=== PATIENT | female | born 1975 | race Caucasian/White ===

== ENCOUNTER 2017-03-31 14:35 | Emergency (ER) | payer OTHER ==
[2017-03-31 16:02] VITALS: BP 147/92
--- NOTE | 2017-03-31 16:46 | ED Physician Documentation ---
PD HPI URI - Stated complaint Stated Complaint: SOA - Chief complaint Chief Complaint: Cardiac - History obtained from History obtained from: Patient - History of Present Illness Timing - onset: How many days ago (few) Timing duration: Days (few) Timing details: Gradual onset, Still present Associated symptoms: Chills. No: Fever Improves by: No: Rest, Medication Worsened by: Activity Review of Systems Constitutional: reports: Myalgias. denies: Fever, Chills Ears: denies: Loss of hearing, Drainage/discharge Cardiac: reports: Chest pain / pressure. denies: Palpitations Respiratory: denies: Dyspnea Skin: denies: Rash, Lesions Neurologic: reports: Syncope. denies: Headache PD PAST MEDICAL HISTORY - Past Medical History Cardiovascular: Hypertension Respiratory: Pneumonia, Other Neuro: Headache/migraine Endocrine/Autoimmune: None GI: GERD OIL CHANGER: None : None HEENT: None Psych: ADD/ADHD Musculoskeletal: None Derm: None - Past Surgical History Past Surgical History: Yes General: Cholecystectomy /OIL CHANGER: Tubal ligation HEENT: Tonsil/Adenoidectomy - Present Medications Home Medications: Ambulatory Orders Medication Instructions Recorded Confirmed buPROPion [Wellbutrin Sr] 150 mg PO DAILY 11/28/15 01/02/16 Albuterol Sulfate [Proair Hfa 2 puffs IH QID #1 hfa.aer.ad 01/02/16 Inhaler] Gabapentin 100 mg ORAL QPM 01/02/16 01/02/16 Hydrocodone/Acetaminophen [[place] 1 each PO Q6H PRN #20 tablet 01/02/16 5-325 Tablet] Ibuprofen [Motrin] 600 mg PO TID #30 tab 01/02/16 HYDROcod/ACETAM 5/325 [[place] 5/325] 1 - 2 ea PO Q6H PRN #15 tablet 03/01/16 Ibuprofen [Motrin] 800 mg PO Q8H PRN #30 tablet 03/01/16 Albuterol Sulf [Ventolin Hfa 1 - 2 puffs INH Q4HR PRN #1 inhaler 03/31/17 Inhaler] Cephalexin [Keflex] 500 mg PO TID #21 capsule 03/31/17 HYDROcod/ACETAM 5/325 [[place] 5/325] 1 tab PO Q6H PRN #15 tablet 03/31/17 Naproxen [Naprosyn] 500 mg PO BID PRN #20 tablet 03/31/17 - Allergies Allergies/Adverse Reactions: Allergies Allergy/AdvReac Type Severity Reaction Status Date / Time tetracycline [Tetracycline] Allergy Nausea Verified 03/31/17 14:53 EVERT Inhibitors AdvReac Nausea Verified 03/31/17 14:53 - Social History Does the pt smoke?: No Smoking Status: Never smoker Does the pt drink ETOH?: Yes Does the pt have substance abuse?: No - Immunizations Immunizations are current?: Yes - POLST Patient has POLST: No PD ED PE NORMAL - Vitals Vital signs reviewed: Yes - General General: Alert and oriented X 3, Well developed/nourished, Other (appears uncomfortable) - HEENT HEENT: PERRL, Dentition benign - Neck Neck: Supple, no meningeal sign - Cardiac Cardiac: RRR, No murmur - Respiratory Respiratory: No: Clear bilaterally (scattered breath sounds, with wheezes noted. No coarse sounds. ) - Abdomen Abdomen: Soft, Non tender - Back Back: No CVA TTP - Derm Derm: Normal color, Warm and dry, No rash - Neuro Neuro: Alert and oriented X 3, No motor deficit, Normal speech Results - Vitals Vitals: Oxygen O2 Source Room air - Labs Labs: Laboratory Tests 03/31/17 03/31/17 03/31/17 17:12 17:12 17:12 WBC 5.2 RBC 4.69 Hgb 12.7 Hct 38.8 MCV 82.8 MCH 27.2 MCHC 32.8 RDW 16.7 H Plt Count 185 MPV 9.7 Neut # 3.8 Lymph # 0.5 L Stanley # 0.7 Eos # 0.1 Baso # 0.0 Absolute Nucleated RBC 0.00 Nucleated RBC % 0.1 Sodium 137 Potassium 4.2 Chloride 103 Carbon Dioxide 27 Anion Gap 7.0 BUN 10 Creatinine 0.5 Estimated GFR (MDRD) 136 Glucose 115 H Calcium 8.9 Total Bilirubin 1.1 H AST 66 H ALT 66 H Alkaline Phosphatase 61 Troponin I < 0.04 B-Natriuretic Peptide Total Protein 7.6 Albumin 3.9 Globulin 3.7 Albumin/Globulin Ratio 1.1 Lipase 27 03/31/17 17:12 WBC RBC Hgb Hct MCV MCH MCHC RDW Plt Count MPV Neut # Lymph # Stanley # Eos # Baso # Absolute Nucleated RBC Nucleated RBC % Sodium Potassium Chloride Carbon Dioxide Anion Gap BUN Creatinine Estimated GFR (MDRD) Glucose Calcium Total Bilirubin AST ALT Alkaline Phosphatase Troponin I B-Natriuretic Peptide 50 Total Protein Albumin Globulin Albumin/Globulin Ratio Lipase - Rads (name of study) chest xray Radiology: Prelim report reviewed, EMP read contemporaneously PD MEDICAL DECISION MAKING - ED course Complexity details: reviewed results, considered differential, d/w patient Departure - Departure Disposition: 01 Home, Self Care Clinical Impression: Chest pain Qualifiers: Chest pain type: other chest pain Qualified Code(s): R07.89 - Other chest pain Upper respiratory infection Qualifiers: URI type: unspecified URI Qualified Code(s): J06.9 - Acute upper respiratory infection, unspecified Condition: Stable Record reviewed to determine appropriate education?: Yes Instructions: ED Upper Resp Infec Abx Tx, ED Strain Chest Wall Prescriptions: Albuterol Sulf [Ventolin Hfa Inhaler] 1 - 2 puffs INH Q4HR PRN #1 inhaler PRN Reason: Shortness Of Air/Wheezing Cephalexin [Keflex] 500 mg PO TID #21 capsule HYDROcod/ACETAM 5/325 [[place] 5/325] 1 tab PO Q6H PRN #15 tablet PRN Reason: Pain Naproxen [Naprosyn] 500 mg PO BID PRN #20 tablet PRN Reason: Pain Comments: Drink lots of fluids. Naproxen twice daily for the next 7-10 days. Add hydrocodone for pain or cough. Use your [place] albuterol inhaler 2 puffs 3-4 times a day for 7-10 days. Cephalexin for possible bacterial infection. Recheck if not improving over the next several days. Discharge Date/Time: 03/31/17 18:58
[2017-03-31] MEDS ORDERED: ALBUTEROL NEB 2.5 MG/3 ML INH STA (17:00)
[2017-03-31] MEDS ORDERED: BENZONATATE 100 MG CAPSULE PO STA (17:00)
[2017-03-31] MEDS ORDERED: MAG HYDROX/AL HYDROX/SIMETH 30 ML UDC PO STA (17:00)
[2017-03-31] MEDS ORDERED: LIDOCAINE VISCOUS 2% 15 ML UDC MM STA (17:00)
[2017-03-31] MEDS ORDERED: HYDROcod/ACETAM 5/325 MG TABLET PO STA (17:00)
[2017-03-31] MEDS ORDERED: ALBUTEROL NEB 2.5 MG/3 ML INH ONE (17:09)
[2017-03-31] MEDS ORDERED: MAGNESIUM HYDROXIDE 2,400 MG/30 ML UDC ONE (17:11)
[2017-03-31] MEDS ORDERED: HYDROcod/ACETAM 5/325 MG TABLET ONE (17:11)
[2017-03-31] MEDS ORDERED: BENZONATATE 100 MG CAPSULE PO ONE (17:11)
[2017-03-31] MEDS ORDERED: LIDOCAINE VISCOUS 2% 15 ML UDC MM ONE (17:12)
[2017-03-31 17:19] LABS: BASOPHILS % (AUTO) 0.8 %; EOSINOPHILS # (AUTO) 0.1 10^3/uL (0.0-0.7); EOSINOPHILS % (AUTO) 1.4 %; HCT - HEMATOCRIT 38.8 % (37.0-47.0); HGB - HEMOGLOBIN 12.7 g/dL (12.0-16.0); LYMPHOCYTES # (AUTO) 0.5 10^3/uL (1.5-3.5); LYMPHOCYTES % (AUTO) 10.6 %; MEAN CORPUSCULAR HEMOGLOBIN 27.2 pg (27.0-31.0); MEAN CORPUSCULAR HGB CONC 32.8 g/dL (32.0-36.0); MEAN CORPUSCULAR VOLUME 82.8 fL (81.0-99.0); MEAN PLATELET VOLUME 9.7 fL (7.9-10.8); MONOCYTES # (AUTO) 0.7 10^3/uL (0.0-1.0); MONOCYTES % (AUTO) 13.1 %; NEUTROPHILS # (AUTO) 3.8 10^3/uL (1.5-6.6); NEUTROPHILS % (AUTO) 74.1 %; NUCLEATED RED BLOOD CELLS AUTO 0.1 /100WBC; RED BLOOD COUNT 4.69 10^6/uL (4.20-5.40); RED CELL DISTRIBUTION WIDTH 16.7 % (12.0-15.0); UNCORRECTED WHITE BLOOD COUNT 5.2 x10^3/uL; WHITE BLOOD COUNT 5.2 x10^3/uL (4.8-10.8)
[2017-03-31 17:34] LABS: ALBUMIN/GLOBULIN RATIO 1.1 (1.0-2.2); BILIRUBIN,TOTAL 1.1 mg/dL (0.2-1.0); CALCIUM 8.9 mg/dL (8.5-10.3); CREATININE 0.5 mg/dL (0.4-1.0); POTASSIUM 4.2 mmol/L (3.5-5.0); TOTAL PROTEIN 7.6 g/dL (6.7-8.2)
--- NOTE | 2017-03-31 18:01 | XRAY Preliminary Report ---
Exam: XR Chest 2 View PA/LAT IMPRESSION: No acute disease. [facility] SITE ID: [id number]
--- NOTE | 2017-03-31 18:04 | XRAY Report ---
EXAM: CHEST RADIOGRAPHY EXAM DATE: 03/31/2017 05:43 PM. CLINICAL HISTORY: Cough and chest pain for few days. COMPARISON: 01/02/2016. TECHNIQUE: 2 views. FINDINGS: Lungs/Pleura: Mild interstitial prominence. No definite acute infiltrate, consolidation, effusion, or pneumothorax. Mediastinum: Mild cardiomegaly, unchanged. Upper lobe vessels not distended. Other: None. IMPRESSION: No acute disease. [facility] Referring Provider Line: [phone] SITE ID: [id number]
== END 2017-03-31 18:58 | disposition home or self-care (01) ==
LOC: ED 14:35
DX: R07.89 Other chest pain (principal); J06.9 Acute upper respiratory infection, unspecified; I10 Essential (primary) hypertension
CPT/HCPCS: 36415; 71020; 80053; 83690; 83880; 84484; 85025; 94640; 99283; A9270; J7613

== ENCOUNTER 2017-04-03 11:25 | Emergency (ER) | payer OTHER ==
--- NOTE | 2017-04-03 12:09 | ED Physician Documentation ---
PD HPI URI - Stated complaint Stated Complaint: SOA/COUGH - Chief complaint Chief Complaint: Resp - History obtained from History obtained from: Patient - History of Present Illness Timing - onset: How many days ago (several) Timing details: Gradual onset, Still present Associated symptoms: Fever, Productive cough, Hemoptysis (trace blood with coughing at times today.) Contributing factors: COPD / asthma. No: Sick contact, Travel, Immunocompromised Improves by: Rest, MDI/nebulizer Worsened by: Activity, Breathing Similar symptoms before: Diagnosis (URI, bronchitis, pneumonia in the past.) Recently seen: Emergency Dept (3 days ago and given Rx for abx Keflex, decadron , and norco (for pain/cough).) Review of Systems Constitutional: reports: Chills, Myalgias. denies: Fever Nose: reports: Congestion, Sinus pressure / pain Throat: reports: Sore throat. denies: Dental pain / toothache Cardiac: reports: Chest pain / pressure. denies: Palpitations Respiratory: reports: Dyspnea, Cough GI: denies: Vomiting, Diarrhea : denies: Dysuria, Frequency Skin: denies: Rash PD PAST MEDICAL HISTORY - Past Medical History Cardiovascular: Hypertension Respiratory: Pneumonia, Other Neuro: Headache/migraine Endocrine/Autoimmune: None GI: GERD OUTSOLE HANDLER: None : None HEENT: None Psych: ADD/ADHD Musculoskeletal: None Derm: None - Past Surgical History Past Surgical History: Yes General: Cholecystectomy /OUTSOLE HANDLER: Tubal ligation HEENT: Tonsil/Adenoidectomy - Present Medications Home Medications: Ambulatory Orders Medication Instructions Recorded Confirmed buPROPion [Wellbutrin Sr] 150 mg PO DAILY 11/28/15 04/03/17 Albuterol Sulfate [Proair Hfa 2 puffs IH QID #1 hfa.aer.ad 01/02/16 04/03/17 Inhaler] Gabapentin 100 mg ORAL QPM 01/02/16 04/03/17 HYDROcod/ACETAM 5/325 [[place] 5/325] 1 - 2 ea PO Q6H PRN #15 tablet 03/01/16 Ibuprofen [Motrin] 800 mg PO Q8H PRN #30 tablet 03/01/16 04/03/17 Albuterol Sulf [Ventolin Hfa 1 - 2 puffs INH Q4HR PRN #1 inhaler 03/31/17 Inhaler] Cephalexin [Keflex] 500 mg PO TID #21 capsule 03/31/17 04/03/17 Naproxen [Naprosyn] 500 mg PO BID PRN #20 tablet 03/31/17 04/03/17 Benzonatate [Tessalon] 100 mg PO TID PRN #20 capsule 04/03/17 HYDROcod/ACETAM 5/325 [[place] 5/325] 1 tab PO Q6H PRN #20 tablet 04/03/17 metFORMIN [Glucophage] 1 tab PO DAILY 04/03/17 04/03/17 - Allergies Allergies/Adverse Reactions: Allergies Allergy/AdvReac Type Severity Reaction Status Date / Time tetracycline [Tetracycline] Allergy Nausea Verified 03/31/17 14:53 EVERT Inhibitors AdvReac Nausea Verified 03/31/17 14:53 - Social History Does the pt smoke?: No Smoking Status: Never smoker Does the pt drink ETOH?: Yes Does the pt have substance abuse?: No - Immunizations Immunizations are current?: Yes - POLST Patient has POLST: No PD ED PE NORMAL - Vitals Vital signs reviewed: Yes - General General: Alert and oriented X 3, Well developed/nourished, Other (looks like she does not feel well. Harsh cough and seems hurting anterior chest when coughs. ) - HEENT HEENT: Pharynx benign - Neck Neck: Supple, no meningeal sign, No adenopathy - Cardiac Cardiac: RRR, No murmur - Respiratory Respiratory: Clear bilaterally - Abdomen Abdomen: Soft, Non tender - Derm Derm: Normal color, Warm and dry - Neuro Neuro: Alert and oriented X 3, No motor deficit, Normal speech Results - Vitals Vitals: Oxygen O2 Source Room air PD MEDICAL DECISION MAKING - ED course Complexity details: considered differential (has been on abx for just 2 days so hard to say if not working (or might be due to not bacterial). Having pain with coughing and mostly does not feel well. ), d/w patient Departure - Departure Disposition: 01 Home, Self Care Clinical Impression: URI (upper respiratory infection) Qualifiers: URI type: unspecified URI Qualified Code(s): J06.9 - Acute upper respiratory infection, unspecified Condition: Stable Record reviewed to determine appropriate education?: Yes Instructions: ED Upper Resp Infec No Abx Tx Follow-Up: JHONATAN SHELTON [Primary Care Provider] - Prescriptions: Benzonatate [Tessalon] 100 mg PO TID PRN #20 capsule PRN Reason: Cough HYDROcod/ACETAM 5/325 [[place] 5/325] 1 tab PO Q6H PRN #20 tablet PRN Reason: Pain Comments: At this point I would continue the antibiotics and steroid and be sure to do the inhaler 2 puffs 4 times a day at least. He can be used extra times as well. Continue the hydrocodone if needed for cough or pain. Add Tessalon for cough. See if it starts improving in the next day or 2. You likely will be ill for about a week or more however and the cough will persist for few weeks even once you are well. It should be tapering soon though. Discharge Date/Time: 04/03/17 12:55
[2017-04-03] MEDS ORDERED: BENZONATATE 100 MG CAPSULE PO STA (12:28)
[2017-04-03] MEDS ORDERED: HYDROcod/ACETAM 5/325 MG TABLET PO STA (12:28)
[2017-04-03] MEDS ORDERED: BENZONATATE 100 MG CAPSULE PO ONE (12:43)
[2017-04-03] MEDS ORDERED: HYDROcod/ACETAM 5/325 MG TABLET ONE (12:44)
[2017-04-03 13:01] VITALS: BP 128/84
== END 2017-04-03 12:55 | disposition home or self-care (01) ==
LOC: ED 11:25
DX: J06.9 Acute upper respiratory infection, unspecified (principal); I10 Essential (primary) hypertension; K21.9 Gastro-esophageal reflux disease without esophagitis
CPT/HCPCS: 99282; 99283; A9270

== ENCOUNTER 2017-04-30 20:50 | Outpatient (CLI) | payer OTHER ==
--- NOTE | 2017-05-01 10:38 | Ultrasound Report ---
PELVIC ULTRASOUND: 04/30/2017 No comparison. INDICATION: Exquisite and worsening tenderness. TECHNIQUE: Sonographic evaluation of the pelvis was performed using transabdominal and endovaginal t echnique. FINDINGS: The uterus and right ovary are surgically absent. There is a 5.3 cm simple-appearing left ovarian cyst. The left ovary otherwise demonstrates normal b lood flow. There is no free fluid in the pelvis. The bladder appears grossly unremarkable. IMPRESSION: 1. LEFT OVARIAN CYST. FOLLOWUP IS AVAILABLE INDICATED. 2. UTERUS AND RIGHT OVARY ARE SURGICALLY ABSENT. :9 JOB #: [id number] EXT JOB #:[id number]
== END 2017-04-30 20:51 | disposition home or self-care (01) ==
LOC: DI 20:50
PROVIDERS: ATTEND Nurse Practitioner Family
DX: N83.292 Other ovarian cyst, left side (principal); Z90.710 Acquired absence of both cervix and uterus; Z90.721 Acquired absence of ovaries, unilateral
CPT/HCPCS: 76830; 76856

== ENCOUNTER 2018-08-15 14:00 | Emergency (ER) | payer OTHER ==
[2018-08-15] MEDS ORDERED: oxyCODONE 5 MG TABLET PO STA (14:11)
--- NOTE | 2018-08-15 14:14 | ED Physician Documentation ---
PD HPI BACK PAIN - Stated complaint Stated Complaint: BACK PX - History obtained from History obtained from: Patient - History of Present Illness Timing - onset: Other (43-year-old woman with occasional back pain presents with 1 week of back pain that was mild until she stepped wrong and became severe across the low back. It does not radiate into the legs. She denies weakness, numbness, or tingling in the extremities except for mild chronic diabetic neuropathy. There are no fevers. No trouble with bowel or bladder movements and no saddle anesthesia. She tried NSAIDs and Flexeril without relief.) Review of Systems Constitutional: denies: Fever, Chills Respiratory: denies: Dyspnea, Cough GI: denies: Abdominal Pain, Nausea, Vomiting PD PAST MEDICAL HISTORY - Past Medical History Cardiovascular: Hypertension Respiratory: Pneumonia, Other Endocrine/Autoimmune: None GI: GERD PANTS CLOSER: None : None HEENT: None Psych: ADD/ADHD Musculoskeletal: None Derm: None - Past Surgical History Past Surgical History: Yes General: Cholecystectomy /PANTS CLOSER: Tubal ligation HEENT: Tonsil/Adenoidectomy - Present Medications Home Medications: Ambulatory Orders Medication Instructions Recorded Confirmed RX: buPROPion [Wellbutrin Sr] 150 mg PO DAILY 11/28/15 04/03/17 RX: Albuterol Sulfate [Proair Hfa 2 puffs IH QID #1 hfa.aer.ad 01/02/16 04/03/17 Inhaler] RX: Gabapentin 100 mg ORAL QPM 01/02/16 04/03/17 Ibuprofen [Motrin] 800 mg PO Q8H PRN #30 tablet 03/01/16 04/03/17 RX: HYDROcod/ACETAM 5/325 [[place] 1 - 2 ea PO Q6H PRN #15 tablet 03/01/16 04/03/17 5/325] Cephalexin [Keflex] 500 mg PO TID #21 capsule 03/31/17 04/03/17 RX: Albuterol Sulf [Ventolin Hfa 1 - 2 puffs INH Q4HR PRN #1 inhaler 03/31/17 04/03/17 Inhaler] RX: Naproxen [Naprosyn] 500 mg PO BID PRN #20 tablet 03/31/17 04/03/17 Benzonatate [Tessalon] 100 mg PO TID PRN #20 capsule 04/03/17 HYDROcod/ACETAM 5/325 [[place] 5/325] 1 tab PO Q6H PRN #20 tablet 04/03/17 RX: metFORMIN [Glucophage] 1 tab PO DAILY 04/03/17 04/03/17 Oxycodone HCl/Acetaminophen 1 - 2 each PO Q6H PRN #14 tablet 08/15/18 [Percocet 5-325 mg Tablet] - Allergies Allergies/Adverse Reactions: Allergies Allergy/AdvReac Type Severity Reaction Status Date / Time tetracycline [Tetracycline] Allergy Nausea Verified 03/31/17 14:53 EVERT Inhibitors AdvReac Nausea Verified 03/31/17 14:53 - Social History Does the pt smoke?: No Smoking Status: Never smoker Does the pt drink ETOH?: Yes Does the pt have substance abuse?: No - Immunizations Immunizations are current?: Yes - POLST Patient has POLST: No PD ED PE NORMAL - Vitals Vital signs reviewed: Yes - General General: Alert and oriented X 3, No acute distress, Other (Win[place] with motion and with walking but comfortable at rest) - Abdomen Abdomen: Soft, Non tender - Back Back: Other (Diffuse muscular tenderness of the low back especially left paralumbar musculature) - Extremities Extremities: Other (The patient has equal and normal Achilles and patellar reflexes bilaterally. Normal sensation in all areas of the legs. Patient denies saddle anesthesia. Normal strength in flexion-extension at the ankles, knees, and flexion of the hips.) Results - Vitals Vitals: Vital Signs - 24 hr 08/15/18 08/15/18 14:09 14:22 Temperature 36.8 C 36.8 C Heart Rate 91 90 Respiratory 20 18 Rate Blood Pressure 138/88 H 135/88 H O2 Saturation 99 99 Oxygen O2 Source Room air PD MEDICAL DECISION MAKING - ED course ED course: This patient has seemingly uncomplicated musculoskeletal back pain. The patient has no "red flags." Specifically denies IV drug use, fevers, incontinence, saddle anesthesia. Spinal epidural abscess was considered, given that the patient has no fever, has no spinal tenderness, does not use IV drugs, and has no bilateral neurologic symptoms, the diagnosis of spinal epidural abscess is considered exceedingly unlikely. Departure - Departure Disposition: 01 Home, Self Care Clinical Impression: Back pain Condition: Good Record reviewed to determine appropriate education?: Yes Instructions: ED Neck Back Pain General Prescriptions: Oxycodone HCl/Acetaminophen [Percocet 5-325 mg Tablet] 1 - 2 each PO Q6H PRN #14 tablet PRN Reason: pain Comments: You can continue ibuprofen as needed for pain. Return if worse or if you develop a fever. Follow-up with your doctor in 2-3 days for recheck. Do not drink or drive while taking narcotic pain medication. Note that many narcotic pain relievers also contain Tylenol/acetaminophen. Please ensure that your total dose of acetaminophen from all sources does not exceed 3 g (3000 mg) per day. You may get constipated while on this medication. Take a stool softener such as Colace twice a day while you are on it. Also add an [id number] laxative such as senna or MiraLAX on any day that you do not have a bowel movement. If you received a narcotic pain medication or sedative while in the emergency department, do not drive for the next 24 hours. Discharge Date/Time: 08/15/18 14:22
[2018-08-15 14:23] VITALS: BP 135/88
== END 2018-08-15 14:22 | disposition home or self-care (01) ==
LOC: ED 14:00
DX: M54.5 Low back pain (principal); I10 Essential (primary) hypertension
CPT/HCPCS: 99283; A9270